=== PATIENT | male | born 1970 | race Hispanic/Latino ===

== ENCOUNTER 2022-11-06 09:39 | Emergency (ER) | payer OTHER ==
[~2022-11-06] VITALS: Ht 175.3 cm; Wt 86.2 kg
[2022-11-06 10:52] LABS: BASOPHILS % (AUTO) 0.8 % (0.0-5.0); EOSINOPHILS % (AUTO) 24.5 % (0.0-8.0); HEMATOCRIT 37.8 % (42-54); LYMPHOCYTES % (AUTO) 16.5 % (21.0-51.0); MEAN CORPUSCULAR HEMOGLOBIN 31.3 pg (27.0-33.0); MEAN CORPUSCULAR HGB CONC 34.7 g/dL (32.0-36.0); MEAN CORPUSCULAR VOLUME 90.2 fL (79-99); MONOCYTES % (AUTO) 6.6 % (3.0-13.0); NEUTROPHILS % (AUTO) 51.6 % (40.0-77.0); PLATELET COUNT (AUTO) 90 K/uL (130-400); RED BLOOD CELL COUNT(AUTO) 4.19 MIL/uL (4.50-6.20); RED CELL DISTRIBUTION WIDTH 13.3 % (11.0-15.5)
[2022-11-06 10:58] LABS: CREATININE 0.8 mg/dL (0.5-1.5); POTASSIUM 3.8 mmol/L (3.5-5.1)
[2022-11-06 11:00] LABS: INR 1.1 (0.85-1.15); PROTHROMBIN TIME 11.9 SEC (9.6-11.6)
[2022-11-06 11:01] LABS: PARTIAL THROMBOPLASTIN TIME 29.8 SEC (26.3-35.5)
[2022-11-06 11:06] LABS: ALBUMIN 3.4 g/dL (3.5-5.0); TOTAL PROTEIN, SERUM 7.4 g/dL (6.0-8.3)
[2022-11-06] MEDS ORDERED: LIDOCAINE HCL 1% 20 ML VIAL ONE (13:01)
[2022-11-06] MEDS ORDERED: LIDOCAINE HCL 1% 20 ML VIAL INJ SCH (13:30)
[2022-11-06 14:08] VITALS: BP 141/80
[2022-11-06] MEDS ORDERED: ALBUMIN (HUMAN) 25% 50 ML IV SCH (15:00)
== END 2022-11-06 15:51 | disposition home or self-care (01) ==
LOC: EDH 09:39
DX: R18.8 Other ascites (principal); K70.9 Alcoholic liver disease, unspecified; E11.9 Type 2 diabetes mellitus without complications
CPT/HCPCS: 49083; 99285; 76700; 80053; 82140; 83690; 85025; 85610; 85730; 36415; 74018; 76705; P9047

== ENCOUNTER 2023-02-16 20:28 | Inpatient (IN) | payer BC, OTHER ==
[~2023-02-16] VITALS: Ht 182.9 cm; Wt 80.8 kg
[2023-02-16 21:23] LABS: BASOPHILS % (AUTO) 0.3 % (0.0-5.0); EOSINOPHILS % (AUTO) 0.4 % (0.0-8.0); HEMATOCRIT 35.1 % (42-54); LYMPHOCYTES % (AUTO) 4.9 % (21.0-51.0); MEAN CORPUSCULAR HEMOGLOBIN 31.8 pg (27.0-33.0); MEAN CORPUSCULAR HGB CONC 35.3 g/dL (32.0-36.0); MONOCYTES % (AUTO) 10.7 % (3.0-13.0); NEUTROPHILS % (AUTO) 83.2 % (40.0-77.0); PLATELET COUNT (AUTO) 140 K/uL (130-400); WHITE BLOOD COUNT (AUTO) 12.5 K/uL (4.8-10.8)
[2023-02-16 21:36] LABS: APPEARANCE,URINE CLEAR (CLEAR); BILIRUBIN,URINE 1 mg/dL (NEGATIVE); COLOR,URINE DARK-YELLOW (YELLOW); GLUCOSE, URINE (UA) >=1000 mg/dL (NEGATIVE); KETONES,URINE NEGATIVE (NEGATIVE); LEUKOCYTE ESTERASE ,URINE NEGATIVE Leu/uL (NEGATIVE); NITRATE,URINE NEGATIVE (NEGATIVE); OCCULT BLOOD,URINE NEGATIVE (NEGATIVE); PROTEIN,URINE 30 mg/dL (NEGATIVE); UROBILINOGEN,URINE 3 mg/dL (0.2-1.0)
[2023-02-16 21:37] LABS: CREATININE 1.3 mg/dL (0.5-1.5); POTASSIUM 5.1 mmol/L (3.5-5.1)
[2023-02-16 21:42] LABS: ALBUMIN 2.6 g/dL (3.5-5.0); TOTAL PROTEIN, SERUM 7.8 g/dL (6.0-8.3)
[2023-02-16 21:50] LABS: BACTERIA,URINE FEW /HPF (None Seen); HYALINE CASTS, URINE 26-50 /LPF (0-1 /LPF); MUCUS,URINE MOD LPF (None Seen); OTHER CASTS, URINE 6 /LPF (None Seen); SQUAMOUS EPITHELIAL CELL,UR FEW /HPF (0-2)
[2023-02-16] MEDS ORDERED: PANTOPRAZOLE 40 MG/VIAL ONE (22:56)
[2023-02-16] MEDS ORDERED: ONDANSETRON 4MG INJ IVP ONE (23:00)
[2023-02-16] MEDS ORDERED: PANTOPRAZOLE 40 MG/VIAL IVP ONE (23:30)
[2023-02-17] VITALS (14 sets, daily range): BP systolic 95–123; BP diastolic 45–77
[2023-02-17] MEDS ORDERED: INSULIN HUMULIN R 100 UNIT/ML 3ML ONE (00:15)
[2023-02-17] MEDS ORDERED: MORPHINE 2 MG SYG ONE (00:16)
[2023-02-17] MEDS ORDERED: LACTATED RINGERS 1000ML 1,000 ML IV ONE ×2 (00:16→00:30)
[2023-02-17] MEDS ORDERED: INSULIN HUMULIN R 100 UNIT/ML 3ML IV ONE (00:30)
[2023-02-17] MEDS ORDERED: MORPHINE 2 MG SYG IVP ONE (00:30)
[2023-02-17] MEDS ORDERED: OMEP40CA21 PO (03:58)
[2023-02-17] MEDS ORDERED: METF-444 PO (03:58)
[2023-02-17] MEDS ORDERED: FURO40TA5 PO (03:58)
[2023-02-17] MEDS ORDERED: SPIR100T5 PO (03:58)
[2023-02-17] MEDS ORDERED: ACETAMINOPHEN 325 MG TAB PO PRN (04:00)
[2023-02-17] MEDS ORDERED: ACETAMINOPHEN 650 MG SUPPOSITORY RC PRN (04:00)
[2023-02-17] MEDS ORDERED: ALBUTEROL 0.083% 2.5 MG/3 ML INH IH PRN (04:00)
[2023-02-17] MEDS: HYDROCODONE/ACETAMINOPHEN 5/325 MG TAB PO PRN (05:18)
[2023-02-17] MEDS ORDERED: INSULIN HUMULIN R 100 UNIT/ML 3ML SQ SCH ×2 (07:30→16:30)
[2023-02-17 08:36] LABS: INR 1.19 (0.85-1.15); PROTHROMBIN TIME 12.8 SEC (9.6-11.6)
[2023-02-17] MEDS: CEFTRIAXONE 1G VIAL IV SCH (09:29)
[2023-02-17] MEDS: FAMOTIDINE 20MG TAB PO SCH ×2 (09:34→22:24)
[2023-02-17] MEDS ORDERED: LIDOCAINE HCL 1% 20 ML VIAL ONE (10:44)
[2023-02-17] MEDS ORDERED: ALBUMIN (HUMAN) 25% 200 ML IV SCH (11:00)
[2023-02-17] MEDS ORDERED: MAGNESIUM 2GM PREMIX 50ML 50 ML IV PRN (12:00)
[2023-02-17] MEDS ORDERED: GLUCAGON 1MG KIT 1 MG ML IM PRN (12:00)
[2023-02-17] MEDS ORDERED: POTASSIUM CHLORIDE 10% ELIXIR 20 MEQ/15 ML UDCUP PO PRN (12:00)
[2023-02-17] MEDS ORDERED: KCL 20 MEQ ERTAB PO PRN (12:00)
[2023-02-17] MEDS ORDERED: PHARMACY COMMUNICATION MISC SCH (12:00)
[2023-02-17] MEDS ORDERED: DEXTROSE 50%-WATER 50 ML DISP.SYRIN IV PRN (12:00)
[2023-02-17] MEDS ORDERED: POTASSIUM CHLORIDE 20MEQ/100ML 100 ML IV PRN (12:00)
[2023-02-17] MEDS: INSULIN HUMULIN R 100 UNIT/ML 3ML SQ SCH ×3 (12:37→22:31)
[2023-02-17 14:12] LABS: ALBUMIN,BODY FLUID 0.9 g/dL
[2023-02-17 14:13] LABS: APPEARANCE BODY FLUID SLIGHTLY CLOUDY (CLEAR); COLOR,BODY FLUID YELLOW (LT YELLOW); SPECIMENTYPE,BODY FLUID ASCITES; TOTAL VOLUME,BODY FLUID 9800 mL
[2023-02-17 14:26] LABS: BODY FLUID RBC 2516 /cu. mm.; BODY FLUID WBC 3613 /cu. mm.
[2023-02-17 15:24] LABS: BF LYMPHOCYTE 15 %
[2023-02-17] MEDS: HEPARIN 5,000 UNIT VIAL SQ SCH (16:51)
[2023-02-17] MEDS: ALBUMIN (HUMAN) 25% 100 ML IV SCH (22:06)
[2023-02-17] MEDS: PANTOPRAZOLE 40 MG TAB DR PO SCH (22:24)
[2023-02-17] MEDS ORDERED: ONDANSETRON 4MG INJ IVP PRN (22:30)
[2023-02-17] MEDS ORDERED: PROMETHAZINE HCL 25 MG/ML 1ML AMPULE IM PRN (22:30)
[2023-02-18 03:40] VITALS: BP 108/71
[2023-02-18] MEDS: ALBUMIN (HUMAN) 25% 100 ML IV SCH ×2 (04:06→09:10)
[2023-02-18] MEDS: HEPARIN 5,000 UNIT VIAL SQ SCH ×2 (04:16→17:04)
[2023-02-18] MEDS ORDERED: DIATR MEGLU/DIATRIZOATE SODIUM 30 ML BOTTLE ONE (05:10)
[2023-02-18 06:03] LABS: BASOPHILS % (AUTO) 0.5 % (0.0-5.0); EOSINOPHILS % (AUTO) 3.9 % (0.0-8.0); HEMATOCRIT 31.7 % (42-54); LYMPHOCYTES % (AUTO) 9.2 % (21.0-51.0); MEAN CORPUSCULAR HEMOGLOBIN 31.9 pg (27.0-33.0); MEAN CORPUSCULAR HGB CONC 34.7 g/dL (32.0-36.0); MEAN CORPUSCULAR VOLUME 91.9 fL (79-99); MONOCYTES % (AUTO) 11.6 % (3.0-13.0); NEUTROPHILS % (AUTO) 74.3 % (40.0-77.0); PLATELET COUNT (AUTO) 119 K/uL (130-400); RED BLOOD CELL COUNT(AUTO) 3.45 MIL/uL (4.50-6.20); RED CELL DISTRIBUTION WIDTH 13.7 % (11.0-15.5); WHITE BLOOD COUNT (AUTO) 7.5 K/uL (4.8-10.8)
[2023-02-18 06:15] LABS: INR 1.21 (0.85-1.15)
[2023-02-18] MEDS: INSULIN HUMULIN R 100 UNIT/ML 3ML SQ SCH ×4 (06:29→21:08)
[2023-02-18 06:30] LABS: CREATININE 1.1 mg/dL (0.5-1.5); MAGNESIUM 2.1 mg/dL (1.80-2.40); PHOSPHORUS 3.7 mg/dL (2.5-4.9); POTASSIUM 5.1 mmol/L (3.5-5.1)
[2023-02-18 06:44] LABS: B-TYPE NATRIURETIC PEPTIDE 7 pg/mL (0-100)
[2023-02-18 08:00] VITALS: BP 120/72
[2023-02-18] MEDS: CEFTRIAXONE 1G VIAL IV SCH (09:10)
[2023-02-18] MEDS ORDERED: IOHEXOL-350 75 ML VIAL IV ONE (10:15)
[2023-02-18 12:00] VITALS: BP 119/72
[2023-02-18] MEDS: FUROSEMIDE 40 MG TABLET PO SCH (12:01)
[2023-02-18] MEDS: PANTOPRAZOLE 40 MG TAB DR PO SCH ×2 (12:01→20:39)
[2023-02-18] MEDS: FAMOTIDINE 20MG TAB PO SCH ×2 (12:01→20:39)
[2023-02-18] MEDS: SPIRONOLACTONE 25 MG TAB PO SCH (12:01)
[2023-02-18 16:00] VITALS: BP 105/66
[2023-02-18] MEDS: HYDROCODONE/ACETAMINOPHEN 5/325 MG TAB PO PRN (17:02)
[2023-02-18 19:32] VITALS: BP 111/63
[2023-02-18 23:31] VITALS: BP 105/60
[2023-02-19 03:07] VITALS: BP 115/66
[2023-02-19] MEDS: HEPARIN 5,000 UNIT VIAL SQ SCH (04:14)
[2023-02-19 05:35] LABS: HEMATOCRIT 30.7 % (42-54); MEAN CORPUSCULAR HEMOGLOBIN 31.8 pg (27.0-33.0); MEAN CORPUSCULAR HGB CONC 35.5 g/dL (32.0-36.0); MEAN CORPUSCULAR VOLUME 89.5 fL (79-99); RED BLOOD CELL COUNT(AUTO) 3.43 MIL/uL (4.50-6.20); RED CELL DISTRIBUTION WIDTH 13.4 % (11.0-15.5); WHITE BLOOD COUNT (AUTO) 8.5 K/uL (4.8-10.8)
[2023-02-19 06:02] LABS: CREATININE 1.1 mg/dL (0.5-1.5); MAGNESIUM 2.3 mg/dL (1.80-2.40); PHOSPHORUS 3.3 mg/dL (2.5-4.9); POTASSIUM 4.7 mmol/L (3.5-5.1); TOTAL PROTEIN, SERUM 6.7 g/dL (6.0-8.3)
[2023-02-19] MEDS: INSULIN HUMULIN R 100 UNIT/ML 3ML SQ SCH ×2 (06:27→11:40)
[2023-02-19 07:30] VITALS: BP 110/67
[2023-02-19] MEDS: FAMOTIDINE 20MG TAB PO SCH (08:18)
[2023-02-19] MEDS: CEFTRIAXONE 1G VIAL IV SCH (08:18)
[2023-02-19] MEDS: PANTOPRAZOLE 40 MG TAB DR PO SCH (08:18)
[2023-02-19] MEDS: SPIRONOLACTONE 25 MG TAB PO SCH (08:19)
[2023-02-19] MEDS: FUROSEMIDE 40 MG TABLET PO SCH (08:19)
[2023-02-19 11:30] VITALS: BP 115/69
== END 2023-02-19 13:45 | disposition home or self-care (01) | DRG 871 ==
LOC: EDH 20:28 → EDHIP 02-17 03:25 → OBSVTOIN 02-17 03:25 → 3DH 02-17 04:36
PROVIDERS: ADMIT Internal Medicine; ATTEND Internal Medicine
PROC: 0W9G3ZZ Drainage of Peritoneal Cavity, Percutaneous Approach (ICD-10-PCS; principal; 2023-02-17)
DX: A41.9 Sepsis, unspecified organism (principal); K65.2 Spontaneous bacterial peritonitis; E44.0 Moderate protein-calorie malnutrition; E87.20 Acidosis, unspecified; I85.10 Secondary esophageal varices without bleeding; K76.6 Portal hypertension; N30.00 Acute cystitis without hematuria; R18.8 Other ascites; Z20.822 Contact with and (suspected) exposure to COVID-19; D63.8 Anemia in other chronic diseases classified elsewhere; D69.59 Other secondary thrombocytopenia; E11.65 Type 2 diabetes mellitus with hyperglycemia; K74.60 Unspecified cirrhosis of liver; Z79.899 Other long term (current) drug therapy; Z68.24 Body mass index [BMI] 24.0-24.9, adult
CPT/HCPCS: 36415; 49083; 74176; 74177; 76700; 80048; 80053; 81001; 82040; 82042; 82140; 82948; 83605; 83690; 83735; 83880; 84100; 84145; 84157; 84484; 85025; 85027; 85610; 87040; 87071; 87205; 87635; 87804; 89051; C1729; C9113; C9803; G0378; J0696; J1644; J1815; J2405; J7120; P9046; Q9963; Q9967

== ENCOUNTER 2024-07-11 17:18 | Inpatient (IN) | payer SELFPAY ==
[~2024-07-11] VITALS: Ht 175.3 cm; Wt 76.7 kg
[~2024-07-11 17:18] MED LIST: FURO40TA5 PO; METF-444 PO; OMEP40CA21 PO; SPIR100T5 PO
[2024-07-11 18:02] LABS: BASOPHILS # (AUTO) 0.03 K/uL (0.00-0.20); BASOPHILS % (AUTO) 0.2 % (0.0-5.0); EOSINOPHILS # (AUTO) 0.16 K/uL (0.00-0.70); EOSINOPHILS % (AUTO) 1.1 % (0.0-8.0); HEMATOCRIT 30.8 % (42-54); IMMATURE GRANULOCYTE ABSOLUTE 0.27 K/uL (0-1); LYMPHOCYTES # (AUTO) 0.7 K/uL (1.0-4.8); LYMPHOCYTES % (AUTO) 4.6 % (21.0-51.0); MEAN CORPUSCULAR HEMOGLOBIN 31.8 pg (27.0-33.0); MEAN CORPUSCULAR HGB CONC 34.7 g/dL (32.0-36.0); MEAN CORPUSCULAR VOLUME 91.7 fL (79-99); MONOCYTES # (AUTO) 1.5 K/uL (0.1-1.0); MONOCYTES % (AUTO) 9.9 % (3.0-13.0); NEUTROPHILS # (AUTO) 12.4 K/uL (1.8-7.7); NEUTROPHILS % (AUTO) 82.4 % (40.0-77.0); PLATELET COUNT (AUTO) 71 K/uL (130-400); RED BLOOD CELL COUNT(AUTO) 3.36 MIL/uL (4.50-6.20); RED CELL DISTRIBUTION WIDTH 14.1 % (11.0-15.5); WHITE BLOOD COUNT (AUTO) 15.1 K/uL (4.8-10.8)
[2024-07-11 18:19] LABS: CREATININE 2.3 mg/dL (0.5-1.3); POTASSIUM 5.3 mmol/L (3.5-5.1)
[2024-07-11 18:29] LABS: ALBUMIN 2.4 g/dL (3.5-5.0); BILIRUBIN,DIRECT 2.3 mg/dL (0.0-0.3); BILIRUBIN,TOTAL 3.4 mg/dL (0.2-1.0); TOTAL PROTEIN, SERUM 6.8 g/dL (6.0-8.3)
[2024-07-11] MEDS: cefTRIAXone 1G VIAL IVPB ONE (18:48)
[2024-07-11] MEDS: [UNRECOGNIZED DRUG - OTHER] IV ONE (18:48)
[2024-07-11 19:40] LABS: ABG OXYGEN SATURATION 72.5 % (94.0-98.0); BASE EXCESS,VENOUS BLOOD GAS -5.5 (-2.0-3.0); DEVICE COMMENT VLINE RN MIKE; HCO3,VENOUS BLOOD GAS 17.6 (22.0-29.0); PCO2,VENOUS BLOOD GAS 28 (38-54); PH,VENOUS BLOOD GAS 7.409 (7.320-7.430); PO2,VENOUS BLOOD GAS 37.2 mmHg (23.0-48.0); VENT MODE, BG ROOMAIR (ROOM AIR)
[2024-07-11 20:02] LABS: APPEARANCE,URINE CLOUDY (CLEAR); BILIRUBIN,URINE NEGATIVE (NEGATIVE); COLOR,URINE YELLOW (YELLOW); GLUCOSE, URINE (UA) 70 mg/dL (NEGATIVE); KETONES,URINE NEGATIVE (NEGATIVE); LEUKOCYTE ESTERASE ,URINE 500 Leu/uL (NEGATIVE); NITRATE,URINE 2+ (NEGATIVE); OCCULT BLOOD,URINE LARGE (NEGATIVE); PROTEIN,URINE 20 mg/dL (NEGATIVE); UROBILINOGEN,URINE 0.2 mg/dL (0.2-1.0)
[2024-07-11 20:21] LABS: ADD UA MICROSCOPIC YES
[2024-07-11 20:27] LABS: BACTERIA,URINE FEW /HPF (None Seen); MUCUS,URINE RARE LPF (None Seen); UNCLASSIFIED CRYSTAL 3 /HPF (None Seen); WBC CLUMP FEW /HPF (0-1); WBC,URINE >100 /HPF (0-1)
[2024-07-11] MEDS: INSULIN humuLIN R 100 UNIT/ML 3ML IV ONE (21:40)
[2024-07-11] MEDS ORDERED: ondanSETRON 4MG INJ IVP PRN (22:00)
[2024-07-11] MEDS ORDERED: FURO40TA5 PO (22:15)
[2024-07-11] MEDS ORDERED: FERR-72 PO (22:18)
[2024-07-11] MEDS ORDERED: SPIR100T5 PO (22:18)
[2024-07-11 22:27] VITALS: BP 137/71; PULSE 103; RESP 20; TEMP 98.4
[2024-07-11 22:35] VITALS: O2SAT 98
[2024-07-11 22:41] LABS: CHLORIDE,URINE RANDOM 54 mmol/L (110-250); POTASSIUM,URINE RANDOM 16 mmol/L (25-125); SODIUM,URINE RANDOM 35 mmol/l (40-220)
[2024-07-11] MEDS ORDERED: LACT10SO5 PO (22:45)
[2024-07-11] MEDS ORDERED: METF-446 PO (22:45)
[2024-07-11] MEDS: NA ZIRCON CYCLOSIL(LOKELMA 10GM) PO ONE (23:00)
[2024-07-11] MEDS ORDERED: LACTULOSE 20 GM/30 ML UDCUP PO PRN (23:00)
[2024-07-11] MEDS: acetaMINOPHEN 325 MG TAB PO PRN (23:01)
[2024-07-11 23:36] VITALS: BP 149/58; PULSE 58; RESP 18; TEMP 98.3
[2024-07-12] VITALS (10 sets, daily range): BP systolic 114–126; BP diastolic 62–74; PULSE 88–108; RESP 16–20; TEMP 97.8–101.4; O2SAT 98
[2024-07-12 05:06] LABS: BASOPHILS # (AUTO) 0.03 K/uL (0.00-0.20); BASOPHILS % (AUTO) 0.2 % (0.0-5.0); EOSINOPHILS # (AUTO) 0.11 K/uL (0.00-0.70); EOSINOPHILS % (AUTO) 0.8 % (0.0-8.0); HEMATOCRIT 28.1 % (42-54); IMMATURE GRANULOCYTE ABSOLUTE 0.23 K/uL (0-1); LYMPHOCYTES # (AUTO) 0.8 K/uL (1.0-4.8); MEAN CORPUSCULAR HEMOGLOBIN 33.3 pg (27.0-33.0); MEAN CORPUSCULAR HGB CONC 35.6 g/dL (32.0-36.0); MEAN CORPUSCULAR VOLUME 93.7 fL (79-99); MONOCYTES # (AUTO) 1.1 K/uL (0.1-1.0); MONOCYTES % (AUTO) 8.1 % (3.0-13.0); NEUTROPHILS # (AUTO) 11.5 K/uL (1.8-7.7); NEUTROPHILS % (AUTO) 83.2 % (40.0-77.0); PLATELET COUNT (AUTO) 55 K/uL (130-400); RED CELL DISTRIBUTION WIDTH 14.2 % (11.0-15.5); WHITE BLOOD COUNT (AUTO) 13.9 K/uL (4.8-10.8)
[2024-07-12 05:22] LABS: BILIRUBIN,TOTAL 3.1 mg/dL (0.2-1.0); CREATININE 2.1 mg/dL (0.5-1.3); POTASSIUM 4.6 mmol/L (3.5-5.1)
[2024-07-12 05:33] LABS: HEMOGLOBIN A1C 7.8 % (4.0-6.0)
[2024-07-12] MEDS: INSULIN humuLIN R 100 UNIT/ML 3ML SQ SCH (06:05)
[2024-07-12] MEDS ORDERED: METFORMIN HCL PO SCH (08:00)
[2024-07-12] MEDS: LACTULOSE 20 GM/30 ML UDCUP PO SCH (08:30)
[2024-07-12] MEDS: FAMOTIDINE 20MG VIAL IV SCH (08:30)
[2024-07-12] MEDS: metFORmin HCL 500 MG TABLET PO SCH (08:30)
[2024-07-12] MEDS: furoSEMIDE 40 MG TABLET PO SCH (08:30)
[2024-07-12] MEDS ORDERED: NON-FORMULARY MEDICATION 1 EACH (Lactulose 30 ML) PO SCH (09:00)
[2024-07-12] MEDS: cefTRIAXone 1G VIAL IVPB SCH (16:54)
[2024-07-13 03:42] VITALS: BP 104/63; PULSE 98; RESP 16; TEMP 98
[2024-07-13 05:39] LABS: BASOPHILS # (AUTO) 0.02 K/uL (0.00-0.20); BASOPHILS % (AUTO) 0.2 % (0.0-5.0); EOSINOPHILS # (AUTO) 0.13 K/uL (0.00-0.70); HEMATOCRIT 26.9 % (42-54); LYMPHOCYTES # (AUTO) 0.8 K/uL (1.0-4.8); MEAN CORPUSCULAR HEMOGLOBIN 31.9 pg (27.0-33.0); MEAN CORPUSCULAR HGB CONC 34.2 g/dL (32.0-36.0); MEAN CORPUSCULAR VOLUME 93.4 fL (79-99); MONOCYTES # (AUTO) 0.9 K/uL (0.1-1.0); MONOCYTES % (AUTO) 6.4 % (3.0-13.0); NEUTROPHILS # (AUTO) 11.2 K/uL (1.8-7.7); NEUTROPHILS % (AUTO) 84.9 % (40.0-77.0); PLATELET COUNT (AUTO) 61 K/uL (130-400); RED BLOOD CELL COUNT(AUTO) 2.88 MIL/uL (4.50-6.20); RED CELL DISTRIBUTION WIDTH 14.2 % (11.0-15.5); WHITE BLOOD COUNT (AUTO) 13.2 K/uL (4.8-10.8)
[2024-07-13 05:48] LABS: CREATININE 1.7 mg/dL (0.5-1.3); PHOSPHORUS 3.1 mg/dL (2.5-4.9); POTASSIUM 5.2 mmol/L (3.5-5.1)
[2024-07-13 05:50] LABS: % IRON SATURATION 14.6 % (30-44)
[2024-07-13 08:00] VITALS: BP 124/65; PULSE 90; RESP 18; TEMP 98.3
[2024-07-13] MEDS ORDERED: NON-FORMULARY MEDICATION 1 EACH (Ferrous Sulfate 325 MG) PO SCH (09:00)
[2024-07-13 09:07] VITALS: O2SAT 97
[2024-07-13] MEDS: FERROUS SULFATE 325 MG TABLET.DR PO SCH (09:07)
[2024-07-13] MEDS: NA ZIRCON CYCLOSIL(LOKELMA 10GM) PO ONE (09:32)
[2024-07-13 12:00] VITALS: BP 119/64; PULSE 85; RESP 20; TEMP 98.1
[2024-07-13 14:16] LABS: CREATININE 1.7 mg/dL (0.5-1.3); POTASSIUM 4.8 mmol/L (3.5-5.1)
[2024-07-13] MEDS: SOD FERRIC GLUC COMPLEX/SUC 125 MG in 0.9%NACL 100ML 100 ML IV SCH (15:47)
[2024-07-13] MEDS ORDERED: COMPOUND IV MISC 1 EACH IVSOLN MISC PRN (17:30)
[2024-07-13] MEDS: MEROPENEM 1 GM in 0.9%NACL 100ML 100 ML IV SCH (18:07)
[2024-07-13 20:00] VITALS: BP 126/73; PULSE 88; RESP 18; TEMP 98.2; O2SAT 97
[2024-07-14] VITALS (7 sets, daily range): BP systolic 101–124; BP diastolic 58–69; PULSE 82–95; RESP 16–18; TEMP 98–98.8; O2SAT 96–98
[2024-07-14 05:05] LABS: CREATININE 1.5 mg/dL (0.5-1.3); POTASSIUM 4.1 mmol/L (3.5-5.1)
[2024-07-14 05:10] LABS: BASOPHILS # (AUTO) 0.03 K/uL (0.00-0.20); BASOPHILS % (AUTO) 0.2 % (0.0-5.0); EOSINOPHILS # (AUTO) 0.17 K/uL (0.00-0.70); EOSINOPHILS % (AUTO) 1.4 % (0.0-8.0); HEMATOCRIT 26.3 % (42-54); IMMATURE GRANULOCYTE ABSOLUTE 0.15 K/uL (0-1); LYMPHOCYTES # (AUTO) 0.7 K/uL (1.0-4.8); LYMPHOCYTES % (AUTO) 5.5 % (21.0-51.0); MEAN CORPUSCULAR HEMOGLOBIN 32.3 pg (27.0-33.0); MEAN CORPUSCULAR HGB CONC 34.6 g/dL (32.0-36.0); MEAN CORPUSCULAR VOLUME 93.3 fL (79-99); MONOCYTES # (AUTO) 0.8 K/uL (0.1-1.0); MONOCYTES % (AUTO) 6.6 % (3.0-13.0); NEUTROPHILS # (AUTO) 10.4 K/uL (1.8-7.7); NEUTROPHILS % (AUTO) 85.1 % (40.0-77.0); PLATELET COUNT (AUTO) 73 K/uL (130-400); RED BLOOD CELL COUNT(AUTO) 2.82 MIL/uL (4.50-6.20); RED CELL DISTRIBUTION WIDTH 14.1 % (11.0-15.5); WHITE BLOOD COUNT (AUTO) 12.2 K/uL (4.8-10.8)
[2024-07-14] MEDS ORDERED: COMPOUND IV REFRIGERATED 1 EACH IVSOLN MISC PRN (14:00)
[2024-07-14 23:51] LABS: CREATININE,SERUM FOR CRCL 1.5 mg/dL (0.6-1.3)
[2024-07-15] VITALS (8 sets, daily range): BP systolic 106–130; BP diastolic 64–81; PULSE 74–90; RESP 17–18; TEMP 98–98.6; O2SAT 96–98
[2024-07-15 05:28] LABS: BASOPHILS # (AUTO) 0.03 K/uL (0.00-0.20); BASOPHILS % (AUTO) 0.3 % (0.0-5.0); EOSINOPHILS # (AUTO) 0.24 K/uL (0.00-0.70); EOSINOPHILS % (AUTO) 2.5 % (0.0-8.0); HEMATOCRIT 27.1 % (42-54); IMMATURE GRANULOCYTE ABSOLUTE 0.09 K/uL (0-1); LYMPHOCYTES # (AUTO) 0.6 K/uL (1.0-4.8); LYMPHOCYTES % (AUTO) 6.5 % (21.0-51.0); MEAN CORPUSCULAR HGB CONC 34.7 g/dL (32.0-36.0); MEAN CORPUSCULAR VOLUME 95.1 fL (79-99); MONOCYTES # (AUTO) 0.8 K/uL (0.1-1.0); NEUTROPHILS % (AUTO) 81.8 % (40.0-77.0); PLATELET COUNT (AUTO) 74 K/uL (130-400); RED BLOOD CELL COUNT(AUTO) 2.85 MIL/uL (4.50-6.20); RED CELL DISTRIBUTION WIDTH 14.1 % (11.0-15.5); WHITE BLOOD COUNT (AUTO) 9.7 K/uL (4.8-10.8)
[2024-07-15 06:10] LABS: BILIRUBIN,TOTAL 1.7 mg/dL (0.2-1.0); CREATININE 1.4 mg/dL (0.5-1.3); PHOSPHORUS 2.8 mg/dL (2.5-4.9); POTASSIUM 4.7 mmol/L (3.5-5.1); THYROID STIMULATING HORMONE 4.13 uIU/mL (0.36-3.74); TOTAL PROTEIN, SERUM 6.4 g/dL (6.0-8.3); URIC ACID 6.2 mg/dL (2.6-7.2)
[2024-07-15] MEDS: Vitamin B Complex/Vit C/Folic Acid PO SCH (08:46)
[2024-07-15] MEDS ORDERED: ALBUMIN (HUMAN) 25% 100 ML IV PRN (13:30)
[2024-07-16] VITALS (7 sets, daily range): BP systolic 103–121; BP diastolic 61–68; PULSE 80–91; RESP 16–18; TEMP 98–98.7; O2SAT 99
[2024-07-16 05:15] LABS: BASOPHILS # (AUTO) 0.03 K/uL (0.00-0.20); BASOPHILS % (AUTO) 0.4 % (0.0-5.0); EOSINOPHILS # (AUTO) 0.23 K/uL (0.00-0.70); EOSINOPHILS % (AUTO) 3.1 % (0.0-8.0); HEMATOCRIT 25.7 % (42-54); IMMATURE GRANULOCYTE ABSOLUTE 0.05 K/uL (0-1); LYMPHOCYTES # (AUTO) 0.6 K/uL (1.0-4.8); LYMPHOCYTES % (AUTO) 7.9 % (21.0-51.0); MEAN CORPUSCULAR HEMOGLOBIN 32.2 pg (27.0-33.0); MEAN CORPUSCULAR HGB CONC 34.2 g/dL (32.0-36.0); MEAN CORPUSCULAR VOLUME 94.1 fL (79-99); MONOCYTES # (AUTO) 0.6 K/uL (0.1-1.0); MONOCYTES % (AUTO) 8.1 % (3.0-13.0); NEUTROPHILS # (AUTO) 5.9 K/uL (1.8-7.7); NEUTROPHILS % (AUTO) 79.8 % (40.0-77.0); PLATELET COUNT (AUTO) 86 K/uL (130-400); RED BLOOD CELL COUNT(AUTO) 2.73 MIL/uL (4.50-6.20); RED CELL DISTRIBUTION WIDTH 13.9 % (11.0-15.5); WHITE BLOOD COUNT (AUTO) 7.4 K/uL (4.8-10.8)
[2024-07-16 05:37] LABS: ALBUMIN 1.9 g/dL (3.5-5.0); BILIRUBIN,TOTAL 1.5 mg/dL (0.2-1.0); CREATININE 1.3 mg/dL (0.5-1.3); MAGNESIUM 1.8 mg/dL (1.80-2.40); POTASSIUM 4.7 mmol/L (3.5-5.1); TOTAL PROTEIN, SERUM 6.4 g/dL (6.0-8.3)
[2024-07-16 18:59] LABS: CREATININE,URINE RANDOM 95.45 mg/dL (30-135)
[2024-07-17] VITALS: BP 122/65; PULSE 83; RESP 16; TEMP 99.3
[2024-07-17 04:00] VITALS: BP 113/66; PULSE 87; RESP 17; TEMP 98.7
[2024-07-17 07:11] LABS: BASOPHILS # (AUTO) 0.02 K/uL (0.00-0.20); BASOPHILS % (AUTO) 0.3 % (0.0-5.0); EOSINOPHILS # (AUTO) 0.18 K/uL (0.00-0.70); EOSINOPHILS % (AUTO) 2.9 % (0.0-8.0); HEMATOCRIT 26.9 % (42-54); IMMATURE GRANULOCYTE ABSOLUTE 0.03 K/uL (0-1); LYMPHOCYTES # (AUTO) 0.5 K/uL (1.0-4.8); LYMPHOCYTES % (AUTO) 8.5 % (21.0-51.0); MEAN CORPUSCULAR HEMOGLOBIN 32.9 pg (27.0-33.0); MEAN CORPUSCULAR HGB CONC 33.8 g/dL (32.0-36.0); MEAN CORPUSCULAR VOLUME 97.1 fL (79-99); MONOCYTES # (AUTO) 0.6 K/uL (0.1-1.0); MONOCYTES % (AUTO) 8.9 % (3.0-13.0); NEUTROPHILS # (AUTO) 4.9 K/uL (1.8-7.7); NEUTROPHILS % (AUTO) 78.9 % (40.0-77.0); PLATELET COUNT (AUTO) 95 K/uL (130-400); RED BLOOD CELL COUNT(AUTO) 2.77 MIL/uL (4.50-6.20); RED CELL DISTRIBUTION WIDTH 13.7 % (11.0-15.5); WHITE BLOOD COUNT (AUTO) 6.3 K/uL (4.8-10.8)
[2024-07-17 07:34] LABS: ALBUMIN 2.1 g/dL (3.5-5.0); BILIRUBIN,TOTAL 1.4 mg/dL (0.2-1.0); CREATININE 1.3 mg/dL (0.5-1.3); MAGNESIUM 2.1 mg/dL (1.80-2.40); THYROID STIMULATING HORMONE 3.46 uIU/mL (0.36-3.74); TOTAL PROTEIN, SERUM 6.6 g/dL (6.0-8.3); URIC ACID 5.4 mg/dL (2.6-7.2)
[2024-07-17 08:09] VITALS: BP 111/58; PULSE 78; RESP 16; TEMP 98.2
[2024-07-17 08:50] VITALS: O2SAT 98
[2024-07-17 11:32] VITALS: BP 110/68; PULSE 79; RESP 16; TEMP 98.3
[2024-07-17 16:27] VITALS: BP 133/79; PULSE 88; RESP 16; TEMP 97.7
== END 2024-07-17 17:25 | disposition home or self-care (01) | DRG 871 ==
LOC: EDH 17:18 → EDHIP 20:34 → 3AH 22:05
PROVIDERS: ADMIT Internal Medicine; ATTEND Internal Medicine
DX: A41.9 Sepsis, unspecified organism (principal); R65.21 Severe sepsis with septic shock; E87.20 Acidosis, unspecified; N17.9 Acute kidney failure, unspecified; E87.1 Hypo-osmolality and hyponatremia; Z16.24 Resistance to multiple antibiotics; N30.00 Acute cystitis without hematuria; R18.8 Other ascites; E87.5 Hyperkalemia; K74.60 Unspecified cirrhosis of liver; E11.65 Type 2 diabetes mellitus with hyperglycemia; N18.9 Chronic kidney disease, unspecified; E11.22 Type 2 diabetes mellitus with diabetic chronic kidney disease; I12.9 Hypertensive chronic kidney disease with stage 1 through stage 4 chronic kidney disease, or unspecified chronic kidney disease; E87.6 Hypokalemia; E11.649 Type 2 diabetes mellitus with hypoglycemia without coma; E66.9 Obesity, unspecified; D50.9 Iron deficiency anemia, unspecified; E87.8 Other disorders of electrolyte and fluid balance, not elsewhere classified; D69.6 Thrombocytopenia, unspecified; N41.9 Inflammatory disease of prostate, unspecified; B96.20 Unspecified Escherichia coli [E. coli] as the cause of diseases classified elsewhere; E87.70 Fluid overload, unspecified; K59.00 Constipation, unspecified; Z79.84 Long term (current) use of oral hypoglycemic drugs; Z91.148 Patient's other noncompliance with medication regimen for other reason
CPT/HCPCS: 36415; 36600; 71045; 76770; 80048; 80051; 80053; 80076; 81001; 82010; 82140; 82533; 82550; 82570; 82575; 82803; 82948; 83036; 83540; 83550; 83605; 83735; 83880; 83935; 84100; 84145; 84443; 84484; 84550; 85025; 87040; 87086; 87186; 93005; 96365; 96375; 99291; G0378; J0696; J1815; J2185; J2916; J3490; J7030

== ENCOUNTER 2024-08-04 18:50 | Inpatient (IN) | payer SELFPAY ==
[~2024-08-04] VITALS: Ht 175.3 cm; Wt 75.8 kg
[~2024-08-04 18:50] MED LIST changes: +FERR-72 PO; +LACT10SO5 PO; -METF-444 PO; +METF-446 PO; -OMEP40CA21 PO
[2024-08-04 19:19] LABS: APPEARANCE,URINE CLOUDY (CLEAR); BILIRUBIN,URINE NEGATIVE (NEGATIVE); COLOR,URINE LIGHT-RED (YELLOW); GLUCOSE, URINE (UA) NEGATIVE (NEGATIVE); KETONES,URINE NEGATIVE (NEGATIVE); LEUKOCYTE ESTERASE ,URINE 500 Leu/uL (NEGATIVE); NITRATE,URINE NEGATIVE (NEGATIVE); OCCULT BLOOD,URINE LARGE (NEGATIVE); PROTEIN,URINE 70 mg/dL (NEGATIVE); UROBILINOGEN,URINE 0.2 mg/dL (0.2-1.0)
[2024-08-04 19:24] LABS: ADD UA MICROSCOPIC YES
[2024-08-04 19:27] LABS: BACTERIA,URINE RARE /HPF (None Seen); RBC,URINE TNTC /HPF (0-1); SQUAMOUS EPITHELIAL CELL,UR RARE /HPF (0-2); WBC CLUMP MOD /HPF (0-1); WBC,URINE TNTC /HPF (0-1)
[2024-08-04] MEDS: cefTRIAXone 1G VIAL IM ONE (20:07)
[2024-08-04] MEDS ORDERED: SULF1TAB42 PO (20:15)
[2024-08-04 20:56] LABS: BASOPHILS # (AUTO) 0.02 K/uL (0.00-0.20); BASOPHILS % (AUTO) 0.4 % (0.0-5.0); EOSINOPHILS # (AUTO) 0.19 K/uL (0.00-0.70); EOSINOPHILS % (AUTO) 3.5 % (0.0-8.0); HEMATOCRIT 27.9 % (42-54); IMMATURE GRANULOCYTE ABSOLUTE 0.02 K/uL (0-1); LYMPHOCYTES # (AUTO) 0.7 K/uL (1.0-4.8); LYMPHOCYTES % (AUTO) 13.5 % (21.0-51.0); MEAN CORPUSCULAR HEMOGLOBIN 32.6 pg (27.0-33.0); MEAN CORPUSCULAR HGB CONC 35.8 g/dL (32.0-36.0); MEAN CORPUSCULAR VOLUME 90.9 fL (79-99); MONOCYTES # (AUTO) 0.4 K/uL (0.1-1.0); NEUTROPHILS % (AUTO) 74.2 % (40.0-77.0); PLATELET COUNT (AUTO) 100 K/uL (130-400); RED BLOOD CELL COUNT(AUTO) 3.07 MIL/uL (4.50-6.20); WHITE BLOOD COUNT (AUTO) 5.4 K/uL (4.8-10.8)
[2024-08-04 21:12] LABS: CREATININE 1.4 mg/dL (0.5-1.3); POTASSIUM 4.1 mmol/L (3.5-5.1)
[2024-08-04] MEDS: 0.9%NACL 1000ML 1,000 ML IV ONE (22:18)
[2024-08-04] MEDS ORDERED: LACTULOSE 20 GM/30 ML UDCUP PO PRN (22:30)
[2024-08-04] MEDS ORDERED: doCUSate SODIUM 100 MG CAP PO PRN (22:30)
[2024-08-04] MEDS ORDERED: hydrALAZine 20MG/ML VIAL IV PRN (22:30)
[2024-08-04] MEDS ORDERED: acetaMINOPHEN 650 MG SUPPOSITORY RC PRN (22:30)
[2024-08-04] MEDS ORDERED: TEMAZepam 15 MG CAPSULE PO PRN (22:30)
[2024-08-04] MEDS ORDERED: ondanSETRON 4MG INJ IVP PRN (22:30)
[2024-08-04] MEDS ORDERED: DEXTROSE 50%-WATER 50 ML DISP.SYRIN IV PRN (23:00)
[2024-08-04] MEDS ORDERED: PoTASSium chloRIDE 20MEQ ER 20 MEQ ERTAB PO PRN (23:00)
[2024-08-04] MEDS ORDERED: PoTASSium chloRIDE 20MEQ/100ML 100 ML IV PRN (23:00)
[2024-08-04] MEDS ORDERED: PoTASSium chl 10% ELIXIR 20MEQ 20 MEQ/15 ML UDCUP PO PRN (23:00)
[2024-08-04] MEDS ORDERED: GLUCAGON 1MG KIT 1 MG ML IM PRN (23:00)
[2024-08-04] MEDS: MEROPENEM 1 GM in 0.9%NACL 100ML 100 ML IVPB SCH (23:02)
[2024-08-04] MEDS: 0.9%NACL 1000ML 1,000 ML IV SCH (23:02)
[2024-08-04 23:03] LABS: ALBUMIN 3.1 g/dL (3.5-5.0); BILIRUBIN,DIRECT 0.7 mg/dL (0.0-0.3); BILIRUBIN,TOTAL 1.4 mg/dL (0.2-1.0); TOTAL PROTEIN, SERUM 9.2 g/dL (6.0-8.3)
[2024-08-04] MEDS: MEROPENEM 1 GM VIAL ONE (23:03)
[2024-08-05] VITALS (10 sets, daily range): BP systolic 107–147; BP diastolic 63–79; PULSE 78–96; RESP 16–18; TEMP 97.8–98.7; O2SAT 96–99
[2024-08-05] MEDS ORDERED: CIPR-278 PO (01:01)
[2024-08-05 01:33] LABS: BASOPHILS # (AUTO) 0.02 K/uL (0.00-0.20); BASOPHILS % (AUTO) 0.5 % (0.0-5.0); EOSINOPHILS # (AUTO) 0.18 K/uL (0.00-0.70); EOSINOPHILS % (AUTO) 4.1 % (0.0-8.0); HEMATOCRIT 24.2 % (42-54); IMMATURE GRANULOCYTE ABSOLUTE 0.02 K/uL (0-1); LYMPHOCYTES # (AUTO) 0.8 K/uL (1.0-4.8); LYMPHOCYTES % (AUTO) 17.9 % (21.0-51.0); MEAN CORPUSCULAR HEMOGLOBIN 32.8 pg (27.0-33.0); MEAN CORPUSCULAR HGB CONC 35.5 g/dL (32.0-36.0); MEAN CORPUSCULAR VOLUME 92.4 fL (79-99); MONOCYTES # (AUTO) 0.5 K/uL (0.1-1.0); MONOCYTES % (AUTO) 10.9 % (3.0-13.0); NEUTROPHILS # (AUTO) 2.9 K/uL (1.8-7.7); NEUTROPHILS % (AUTO) 66.1 % (40.0-77.0); PLATELET COUNT (AUTO) 82 K/uL (130-400); RED BLOOD CELL COUNT(AUTO) 2.62 MIL/uL (4.50-6.20); RED CELL DISTRIBUTION WIDTH 14.1 % (11.0-15.5); WHITE BLOOD COUNT (AUTO) 4.4 K/uL (4.8-10.8)
[2024-08-05 02:00] LABS: CREATININE 1.3 mg/dL (0.5-1.3); MAGNESIUM 1.7 mg/dL (1.80-2.40); PHOSPHORUS 3.1 mg/dL (2.5-4.9); POTASSIUM 4.8 mmol/L (3.5-5.1); THYROID STIMULATING HORMONE 4.39 uIU/mL (0.36-3.74)
[2024-08-05 02:32] LABS: HEMOGLOBIN A1C 7.9 % (4.0-6.0)
[2024-08-05] MEDS: MAGNESIUM 2GM PREMIX 50ML 50 ML IV PRN (03:23)
[2024-08-05] MEDS: INSULIN humuLIN R 100 UNIT/ML 3ML SQ SCH (05:58)
[2024-08-05] MEDS: LACTULOSE 20 GM/30 ML UDCUP PO SCH (08:40)
[2024-08-05] MEDS: FERROUS SULFATE 325 MG TABLET.DR PO SCH (08:40)
[2024-08-05] MEDS ORDERED: hydrALAZine 20MG/ML VIAL IV PRN (10:30)
[2024-08-05] MEDS ORDERED: COMPOUND IV MISC 1 EACH IVSOLN MISC PRN (13:00)
[2024-08-05] MEDS ORDERED: COMPOUND IV REFRIGERATED 1 EACH IVSOLN MISC PRN (13:00)
[2024-08-06 04:00] VITALS: BP 113/55; PULSE 87; RESP 16; TEMP 98.5
[2024-08-06 05:46] LABS: HEMATOCRIT 24.5 % (42-54); MEAN CORPUSCULAR HGB CONC 35.1 g/dL (32.0-36.0); MEAN CORPUSCULAR VOLUME 93.9 fL (79-99); RED BLOOD CELL COUNT(AUTO) 2.61 MIL/uL (4.50-6.20); RED CELL DISTRIBUTION WIDTH 14.1 % (11.0-15.5); WHITE BLOOD COUNT (AUTO) 5.1 K/uL (4.8-10.8)
[2024-08-06 06:11] LABS: ALBUMIN 2.3 g/dL (3.5-5.0); BILIRUBIN,TOTAL 1.2 mg/dL (0.2-1.0); CREATININE 1.2 mg/dL (0.5-1.3); MAGNESIUM 1.9 mg/dL (1.80-2.40); POTASSIUM 3.9 mmol/L (3.5-5.1); TOTAL PROTEIN, SERUM 6.8 g/dL (6.0-8.3)
[2024-08-06 08:00] VITALS: BP 113/65; PULSE 79; RESP 18; TEMP 97.9; O2SAT 99
[2024-08-06] MEDS: furoSEMIDE 40 MG TABLET PO SCH (09:00)
[2024-08-06] MEDS: SPIRONOLACTONE 25 MG TAB PO SCH (09:00)
[2024-08-06] MEDS: MAGNESIUM 2GM PREMIX 50ML 50 ML IV SCH (09:55)
[2024-08-06 12:00] VITALS: BP 123/70; PULSE 82; RESP 20; TEMP 97.8
[2024-08-06 16:00] VITALS: BP 121/68; PULSE 84; RESP 20; TEMP 97.9
[2024-08-06 19:00] VITALS: BP 125/72; PULSE 91; RESP 20; TEMP 98.3
[2024-08-06 20:00] VITALS: O2SAT 96
[2024-08-06] MEDS: acetaMINOPHEN 325 MG TAB PO PRN (22:59)
[2024-08-07] VITALS (7 sets, daily range): BP systolic 107–140; BP diastolic 64–75; PULSE 73–94; RESP 18–22; TEMP 97.4–98.3; O2SAT 99–100
[2024-08-07 05:54] LABS: BASOPHILS # (AUTO) 0.02 K/uL (0.00-0.20); BASOPHILS % (AUTO) 0.5 % (0.0-5.0); EOSINOPHILS # (AUTO) 0.25 K/uL (0.00-0.70); EOSINOPHILS % (AUTO) 5.7 % (0.0-8.0); HEMATOCRIT 22.9 % (42-54); IMMATURE GRANULOCYTE ABSOLUTE 0.02 K/uL (0-1); LYMPHOCYTES # (AUTO) 0.9 K/uL (1.0-4.8); LYMPHOCYTES % (AUTO) 19.5 % (21.0-51.0); MEAN CORPUSCULAR HEMOGLOBIN 33.3 pg (27.0-33.0); MEAN CORPUSCULAR HGB CONC 35.8 g/dL (32.0-36.0); MEAN CORPUSCULAR VOLUME 93.1 fL (79-99); MONOCYTES # (AUTO) 0.5 K/uL (0.1-1.0); NEUTROPHILS # (AUTO) 2.7 K/uL (1.8-7.7); NEUTROPHILS % (AUTO) 61.8 % (40.0-77.0); PLATELET COUNT (AUTO) 78 K/uL (130-400); RED BLOOD CELL COUNT(AUTO) 2.46 MIL/uL (4.50-6.20); RED CELL DISTRIBUTION WIDTH 14.2 % (11.0-15.5); WHITE BLOOD COUNT (AUTO) 4.4 K/uL (4.8-10.8)
[2024-08-07 06:26] LABS: CREATININE 1.4 mg/dL (0.5-1.3); MAGNESIUM 2.1 mg/dL (1.80-2.40); PHOSPHORUS 3.1 mg/dL (2.5-4.9); POTASSIUM 4.3 mmol/L (3.5-5.1)
[2024-08-08] VITALS (7 sets, daily range): BP systolic 112–150; BP diastolic 63–91; PULSE 83–104; RESP 16–20; TEMP 97.7–98.5; O2SAT 100
[2024-08-08 06:03] LABS: BASOPHILS # (AUTO) 0.03 K/uL (0.00-0.20); BASOPHILS % (AUTO) 0.6 % (0.0-5.0); EOSINOPHILS # (AUTO) 0.25 K/uL (0.00-0.70); EOSINOPHILS % (AUTO) 5.1 % (0.0-8.0); HEMATOCRIT 23.3 % (42-54); IMMATURE GRANULOCYTE ABSOLUTE 0.03 K/uL (0-1); LYMPHOCYTES # (AUTO) 0.9 K/uL (1.0-4.8); LYMPHOCYTES % (AUTO) 17.6 % (21.0-51.0); MEAN CORPUSCULAR HEMOGLOBIN 32.9 pg (27.0-33.0); MEAN CORPUSCULAR HGB CONC 34.3 g/dL (32.0-36.0); MEAN CORPUSCULAR VOLUME 95.9 fL (79-99); MONOCYTES # (AUTO) 0.6 K/uL (0.1-1.0); MONOCYTES % (AUTO) 11.7 % (3.0-13.0); NEUTROPHILS # (AUTO) 3.2 K/uL (1.8-7.7); NEUTROPHILS % (AUTO) 64.4 % (40.0-77.0); PLATELET COUNT (AUTO) 81 K/uL (130-400); RED BLOOD CELL COUNT(AUTO) 2.43 MIL/uL (4.50-6.20); RED CELL DISTRIBUTION WIDTH 14.4 % (11.0-15.5)
[2024-08-08 06:15] LABS: CREATININE 1.3 mg/dL (0.5-1.3); POTASSIUM 4.1 mmol/L (3.5-5.1)
[2024-08-09] VITALS: BP 114/68; PULSE 85; RESP 16; TEMP 98.5
[2024-08-09 04:00] VITALS: BP 116/68; PULSE 94; RESP 20; TEMP 98.5
[2024-08-09 04:25] LABS: BASOPHILS # (AUTO) 0.02 K/uL (0.00-0.20); BASOPHILS % (AUTO) 0.5 % (0.0-5.0); EOSINOPHILS # (AUTO) 0.18 K/uL (0.00-0.70); EOSINOPHILS % (AUTO) 4.7 % (0.0-8.0); HEMATOCRIT 22.6 % (42-54); IMMATURE GRANULOCYTE ABSOLUTE 0.01 K/uL (0-1); LYMPHOCYTES # (AUTO) 0.8 K/uL (1.0-4.8); MEAN CORPUSCULAR HEMOGLOBIN 33.1 pg (27.0-33.0); MEAN CORPUSCULAR VOLUME 94.6 fL (79-99); MONOCYTES # (AUTO) 0.5 K/uL (0.1-1.0); MONOCYTES % (AUTO) 12.2 % (3.0-13.0); NEUTROPHILS # (AUTO) 2.4 K/uL (1.8-7.7); NEUTROPHILS % (AUTO) 61.3 % (40.0-77.0); PLATELET COUNT (AUTO) 73 K/uL (130-400); RED BLOOD CELL COUNT(AUTO) 2.39 MIL/uL (4.50-6.20); RED CELL DISTRIBUTION WIDTH 14.4 % (11.0-15.5); WHITE BLOOD COUNT (AUTO) 3.9 K/uL (4.8-10.8)
[2024-08-09 04:38] LABS: CREATININE 1.2 mg/dL (0.5-1.3); POTASSIUM 4.3 mmol/L (3.5-5.1)
[2024-08-09 08:00] VITALS: BP 124/74; PULSE 94; RESP 19; TEMP 97.9; O2SAT 100
[2024-08-09 12:00] VITALS: BP 134/70; PULSE 87; RESP 19; TEMP 98.1
== END 2024-08-09 16:20 | disposition home or self-care (01) | DRG 872 ==
LOC: EDH 18:50 → EDHIP 18:51 → OBSVTOIN 18:51 → UNDOADMOB 22:15 → EDHIP 22:15 → 3AH 08-05 00:11
PROVIDERS: ADMIT Internal Medicine; ATTEND Internal Medicine
DX: A41.9 Sepsis, unspecified organism (principal); E87.20 Acidosis, unspecified; E87.1 Hypo-osmolality and hyponatremia; R18.8 Other ascites; N17.9 Acute kidney failure, unspecified; Z16.12 Extended spectrum beta lactamase (ESBL) resistance; Z16.24 Resistance to multiple antibiotics; N30.91 Cystitis, unspecified with hematuria; N18.9 Chronic kidney disease, unspecified; E11.22 Type 2 diabetes mellitus with diabetic chronic kidney disease; I12.9 Hypertensive chronic kidney disease with stage 1 through stage 4 chronic kidney disease, or unspecified chronic kidney disease; E83.51 Hypocalcemia; E83.42 Hypomagnesemia; K74.60 Unspecified cirrhosis of liver; D64.9 Anemia, unspecified; E11.65 Type 2 diabetes mellitus with hyperglycemia; B96.20 Unspecified Escherichia coli [E. coli] as the cause of diseases classified elsewhere
CPT/HCPCS: 36415; 80048; 80053; 80076; 81001; 82948; 83036; 83605; 83735; 84100; 84145; 84443; 85025; 85027; 87086; 87186; 96360; 96372; G0378; J0696; J1815; J2185; J3475; J7030